=== PATIENT | female | born 1945 | race Caucasian/White ===

== ENCOUNTER 2025-02-23 02:22 | Outpatient (CLI) | payer MEDICARE, SELFPAY ==
[2025-02-23 11:44] LABS: Abs Immature Grans 0.03 10^3/uL (0.0-0.06); Absolute Basophil Count 0.04 10^3/uL (0.0-0.2); Absolute Eosinophil Count 0.13 10^3/uL (0.0-0.7); Absolute Lymphocyte Count 0.96 10^3/uL (1.2-3.4); Absolute Monocyte Count 0.79 10^3/uL (0.1-0.8); Basophils % 0.6 %; Eosinophils % 1.9 %; HCT 32.1 % (36.0-46.0); HGB 10.3 g/dL (11.2-15.7); Immature Grans % 0.4 %; MCH 28.5 pg (27.0-33.0); MCHC 32.1 % (32.0-36.0); MCV 89 fL (80-95); MPV 9.3 fL (8.0-11.0); Monocytes % 11.5 %; Neutrophils % 71.6 %; Platelet Count 345 10^3/uL (130-400); RBC 3.62 10^6/uL (3.93-5.22); RDW 17.3 % (11.7-14.6); RDW-SD 55.2 fL; WBC 6.85 10^3/uL (4.4-10.8)
[2025-02-23 12:50] LABS: ALT 23 U/L (14-59); AST 23 U/L (15-37); Albumin 2.3 g/dL (3.4-5.0); Alkaline Phosphatase 126 U/L (46-116); Anion Gap 6.4 mmol/L (3-11); BUN 8 mg/dL (7-18); Bilirubin, Total 0.2 mg/dL (0.2-1.0); CO2 30.6 mmol/L (21.0-32.0); CREATININE 0.9 mg/dL (0.55-1.02); Calcium 8.7 mg/dL (8.5-10.1); Chloride 105 mmol/L (98-107); Estimated GFR 65.44 (mL/min/1.73m2); FREE T4 1.63 ng/dL (0.76-1.46); Glucose 87 mg/dL (74-106); Magnesium 1.8 mg/dL (1.8-2.4); Potassium 3.6 mmol/L (3.5-5.1); Sodium 142 mmol/L (136-145); TSH 0.28 uIU/mL (0.36-3.74); Total Protein 6.4 g/dL (6.4-8.2)
== END 2025-02-23 02:23 | disposition home or self-care (01) ==
LOC: LBO 02:22
PROVIDERS: PCP Nurse Practitioner Family; Visit Provider Internal Medicine Medical Oncology
DX: Z79.899 Other long term (current) drug therapy (principal); C34.12 Malignant neoplasm of upper lobe, left bronchus or lung; C79.31 Secondary malignant neoplasm of brain
CPT/HCPCS: 36415; 80053; 83735; 84439; 84443; 85025

== ENCOUNTER 2025-03-15 00:45 | Outpatient (CLI) | payer MEDICARE, SELFPAY ==
[2025-03-15 10:32] LABS: Abs Immature Grans 0.05 10^3/uL (0.0-0.06); Absolute Basophil Count 0.03 10^3/uL (0.0-0.2); Absolute Eosinophil Count 0.07 10^3/uL (0.0-0.7); Absolute Lymphocyte Count 1.05 10^3/uL (1.2-3.4); Absolute Monocyte Count 0.81 10^3/uL (0.1-0.8); Absolute Neutrophil Count 3.48 10^3/uL (1.2-6.7); Basophils % 0.5 %; Eosinophils % 1.3 %; HCT 29.1 % (36.0-46.0); HGB 9.2 g/dL (11.2-15.7); Immature Grans % 0.9 %; Lymphocytes % 19.1 %; MCH 28.8 pg (27.0-33.0); MCHC 31.6 % (32.0-36.0); MCV 91 fL (80-95); MPV 9.5 fL (8.0-11.0); Monocytes % 14.8 %; Neutrophils % 63.4 %; Platelet Count 261 10^3/uL (130-400); RDW 17.2 % (11.7-14.6); RDW-SD 55.6 fL; WBC 5.49 10^3/uL (4.4-10.8)
[2025-03-15 11:13] LABS: ALT 24 U/L (14-59); AST 23 U/L (15-37); Albumin 2.5 g/dL (3.4-5.0); Alkaline Phosphatase 129 U/L (46-116); Anion Gap 8.1 mmol/L (3-11); BUN 7 mg/dL (7-18); Bilirubin, Total 0.2 mg/dL (0.2-1.0); CO2 29.9 mmol/L (21.0-32.0); CREATININE 0.7 mg/dL (0.55-1.02); Calcium 8.8 mg/dL (8.5-10.1); Chloride 103 mmol/L (98-107); Estimated GFR 88.47 (mL/min/1.73m2); FREE T4 1.62 ng/dL (0.76-1.46); Glucose 92 mg/dL (74-106); Potassium 3.9 mmol/L (3.5-5.1); Sodium 141 mmol/L (136-145); TSH 0.49 uIU/mL (0.36-3.74); Total Protein 6.5 g/dL (6.4-8.2)
== END 2025-03-15 00:46 | disposition home or self-care (01) ==
LOC: LBO 00:46
PROVIDERS: PCP Nurse Practitioner Family; Visit Provider Internal Medicine Medical Oncology
DX: Z79.899 Other long term (current) drug therapy (principal); C34.32 Malignant neoplasm of lower lobe, left bronchus or lung; C34.12 Malignant neoplasm of upper lobe, left bronchus or lung; C79.31 Secondary malignant neoplasm of brain
CPT/HCPCS: 36415; 80053; 83735; 84439; 84443; 85025

== ENCOUNTER 2025-04-05 03:33 | Outpatient (CLI) | payer MEDICARE, SELFPAY ==
[2025-04-05 10:45] LABS: Abs Immature Grans 0.01 10^3/uL (0.0-0.06); HCT 23.9 % (36.0-46.0); HGB 7.7 g/dL (11.2-15.7); Immature Grans % 0.3 %; MCH 30.1 pg (27.0-33.0); MCHC 32.2 % (32.0-36.0); MCV 93 fL (80-95); MPV 10.2 fL (8.0-11.0); Platelet Count 260 10^3/uL (130-400); RBC 2.56 10^6/uL (3.93-5.22); RDW 19.6 % (11.7-14.6); RDW-SD 64.5 fL; WBC 2.88 10^3/uL (4.4-10.8)
[2025-04-05 11:09] LABS: ALT 21 U/L (14-59); AST 22 U/L (15-37); Albumin 2.6 g/dL (3.4-5.0); Alkaline Phosphatase 110 U/L (46-116); Anion Gap 7.3 mmol/L (3-11); BUN 10 mg/dL (7-18); Bilirubin, Total 0.2 mg/dL (0.2-1.0); CO2 29.7 mmol/L (21.0-32.0); Calcium 9.0 mg/dL (8.5-10.1); Chloride 103 mmol/L (98-107); Estimated GFR 75.37 (mL/min/1.73m2); Glucose 137 mg/dL (74-106); Magnesium 1.7 mg/dL (1.8-2.4); Potassium 3.7 mmol/L (3.5-5.1); Sodium 140 mmol/L (136-145); TSH 0.04 uIU/mL (0.36-3.74); Total Protein 6.6 g/dL (6.4-8.2)
== END 2025-04-05 03:34 | disposition home or self-care (01) ==
LOC: LBO 03:33
PROVIDERS: PCP Nurse Practitioner Family; Visit Provider Internal Medicine Medical Oncology
DX: Z79.899 Other long term (current) drug therapy (principal); C79.31 Secondary malignant neoplasm of brain; C34.12 Malignant neoplasm of upper lobe, left bronchus or lung
CPT/HCPCS: 36415; 80053; 83735; 84439; 84443; 85025

== ENCOUNTER 2025-04-26 12:42 | Outpatient (RCR) | payer MEDICARE, SELFPAY ==
[2025-04-26] MEDS: Normal Saline Flush 10 ML SYR IVP (13:00)
[2025-04-26 13:10] LABS: Abs Immature Grans 0.06 10^3/uL (0.0-0.06); HCT 26.7 % (36.0-46.0); HGB 9.0 g/dL (11.2-15.7); Immature Grans % 0.9 %; MCH 31.8 pg (27.0-33.0); MCHC 33.7 % (32.0-36.0); MCV 94 fL (80-95); MPV 10.4 fL (8.0-11.0); Platelet Count 370 10^3/uL (130-400); RBC 2.83 10^6/uL (3.93-5.22); RDW 18.4 % (11.7-14.6); RDW-SD 58.2 fL; WBC 6.70 10^3/uL (4.4-10.8)
[2025-04-26 13:43] LABS: ALT 22 U/L (14-59); AST 26 U/L (15-37); Albumin 2.8 g/dL (3.4-5.0); Alkaline Phosphatase 91 U/L (46-116); Anion Gap 8.9 mmol/L (3-11); BUN 11 mg/dL (7-18); Bilirubin, Total 0.3 mg/dL (0.2-1.0); CO2 29.1 mmol/L (21.0-32.0); Calcium 8.9 mg/dL (8.5-10.1); Chloride 104 mmol/L (98-107); Estimated GFR 57.66 (mL/min/1.73m2); Glucose 75 mg/dL (74-106); Magnesium 1.9 mg/dL (1.8-2.4); Potassium 3.9 mmol/L (3.5-5.1); Sodium 142 mmol/L (136-145); TSH 0.83 uIU/mL (0.36-3.74); Total Protein 6.6 g/dL (6.4-8.2)
== END 2025-04-29 23:59 | disposition home or self-care (01) ==
LOC: INF 12:42
PROVIDERS: PCP Nurse Practitioner Family; Visit Provider Internal Medicine Medical Oncology
DX: C34.12 Malignant neoplasm of upper lobe, left bronchus or lung (principal); Z79.899 Other long term (current) drug therapy; Z45.2 Encounter for adjustment and management of vascular access device
CPT/HCPCS: 36591; 80053; 83735; 84439; 84443; 85025

== ENCOUNTER 2025-05-18 01:48 | Outpatient (RCR) | payer MEDICARE, SELFPAY ==
[2025-05-18] MEDS: Normal Saline Flush 10 ML SYR IVP (09:55)
[2025-05-18 10:11] LABS: Abs Immature Grans 0.02 10^3/uL (0.0-0.06); HCT 24.3 % (36.0-46.0); HGB 8.1 g/dL (11.2-15.7); Immature Grans % 0.4 %; MCH 33.5 pg (27.0-33.0); MCHC 33.3 % (32.0-36.0); MPV 10.8 fL (8.0-11.0); Platelet Count 276 10^3/uL (130-400); RBC 2.42 10^6/uL (3.93-5.22); RDW 21.6 % (11.7-14.6); RDW-SD 69.9 fL; WBC 5.43 10^3/uL (4.4-10.8)
[2025-05-18 10:58] LABS: MCV 100 fL (80-95)
[2025-05-18 10:59] LABS: ALT 18 U/L (14-59); AST 25 U/L (15-37); Acanthocytes 1+; Albumin 2.9 g/dL (3.4-5.0); Alkaline Phosphatase 87 U/L (46-116); Anion Gap 7.2 mmol/L (3-11); Anisocytosis 2+; BUN 8 mg/dL (7-18); Bilirubin, Total 0.4 mg/dL (0.2-1.0); CO2 29.8 mmol/L (21.0-32.0); Calcium 8.8 mg/dL (8.5-10.1); Chloride 106 mmol/L (98-107); Estimated GFR 46.33 (mL/min/1.73m2); Glucose 109 mg/dL (74-106); Magnesium 2.0 mg/dL (1.8-2.4); Ovalocytes 2+; Potassium 3.9 mmol/L (3.5-5.1); Schistocytes 1+; Sodium 143 mmol/L (136-145); TSH 0.72 uIU/mL (0.36-3.74); Total Protein 6.6 g/dL (6.4-8.2)
[2025-05-18 11:00] LABS: Tear Drop Cells 2+
== END 2025-05-30 23:59 | disposition home or self-care (01) ==
LOC: INF 01:48
PROVIDERS: PCP Nurse Practitioner Family; Visit Provider Internal Medicine Medical Oncology
DX: C34.12 Malignant neoplasm of upper lobe, left bronchus or lung (principal); Z79.899 Other long term (current) drug therapy; Z45.2 Encounter for adjustment and management of vascular access device
CPT/HCPCS: 36591; 80053; 83735; 84439; 84443; 85025

== ENCOUNTER 2025-06-29 02:33 | Outpatient (RCR) | payer MEDICARE, SELFPAY ==
[2025-06-07 09:49] LABS: Abs Immature Grans 0.03 10^3/uL (0.0-0.06); HCT 29.3 % (36.0-46.0); HGB 9.4 g/dL (11.2-15.7); Immature Grans % 0.4 %; MCH 33.8 pg (27.0-33.0); MCHC 32.1 % (32.0-36.0); MCV 105 fL (80-95); MPV 11.1 fL (8.0-11.0); Platelet Count 230 10^3/uL (130-400); RBC 2.78 10^6/uL (3.93-5.22); RDW 17.9 % (11.7-14.6); RDW-SD 68.6 fL; WBC 6.81 10^3/uL (4.4-10.8)
[2025-06-07 10:10] LABS: Macrocytosis 1+
[2025-06-07 10:32] LABS: ALT 15 U/L (14-59); AST 23 U/L (15-37); Albumin 3.0 g/dL (3.4-5.0); Alkaline Phosphatase 88 U/L (46-116); Anion Gap 6.3 mmol/L (3-11); BUN 13 mg/dL (7-18); Bilirubin, Total 0.4 mg/dL (0.2-1.0); CO2 29.7 mmol/L (21.0-32.0); Calcium 8.9 mg/dL (8.5-10.1); Chloride 105 mmol/L (98-107); Glucose 103 mg/dL (74-106); Magnesium 1.8 mg/dL (1.8-2.4); Potassium 4.3 mmol/L (3.5-5.1); Sodium 141 mmol/L (136-145); TSH 0.65 uIU/mL (0.36-3.74); Total Protein 6.9 g/dL (6.4-8.2)
[2025-06-07] MEDS: Normal Saline Flush 10 ML SYR IVP (11:06)
[2025-06-29] MEDS: Normal Saline Flush 10 ML SYR IVP (10:15)
[2025-06-29 10:31] LABS: Abs Immature Grans 0.01 10^3/uL (0.0-0.06); HCT 32.2 % (36.0-46.0); HGB 10.7 g/dL (11.2-15.7); Immature Grans % 0.2 %; MCH 34.6 pg (27.0-33.0); MCHC 33.2 % (32.0-36.0); MCV 104 fL (80-95); MPV 10.5 fL (8.0-11.0); Platelet Count 239 10^3/uL (130-400); RBC 3.09 10^6/uL (3.93-5.22); RDW 13.2 % (11.7-14.6); RDW-SD 50.4 fL; WBC 5.86 10^3/uL (4.4-10.8)
[2025-06-29 10:57] LABS: ALT 17 U/L (14-59); AST 28 U/L (15-37); Albumin 2.9 g/dL (3.4-5.0); Alkaline Phosphatase 95 U/L (46-116); Anion Gap 5.0 mmol/L (3-11); BUN 15 mg/dL (7-18); Bilirubin, Total 0.4 mg/dL (0.2-1.0); CO2 36.0 mmol/L (21.0-32.0); Calcium 9.0 mg/dL (8.5-10.1); Chloride 100 mmol/L (98-107); Glucose 123 mg/dL (74-106); Magnesium 2.0 mg/dL (1.8-2.4); Potassium 3.7 mmol/L (3.5-5.1); Sodium 141 mmol/L (136-145); TSH 0.06 uIU/mL (0.36-3.74); Total Protein 6.9 g/dL (6.4-8.2)
== END 2025-06-29 23:59 | disposition home or self-care (01) ==
LOC: INF 02:33
PROVIDERS: PCP Nurse Practitioner Family; Visit Provider Internal Medicine Medical Oncology
DX: C34.12 Malignant neoplasm of upper lobe, left bronchus or lung (principal); Z79.899 Other long term (current) drug therapy; Z45.2 Encounter for adjustment and management of vascular access device
CPT/HCPCS: 36591; 80053; 83735; 84439; 84443; 85025

== ENCOUNTER 2025-07-19 03:29 | Outpatient (RCR) | payer MEDICARE, SELFPAY ==
[2025-07-19 12:38] LABS: Abs Immature Grans 0.02 10^3/uL (0.0-0.06); HCT 33.6 % (36.0-46.0); HGB 11.0 g/dL (11.2-15.7); Immature Grans % 0.3 %; MCH 32.5 pg (27.0-33.0); MCHC 32.7 % (32.0-36.0); MCV 99 fL (80-95); MPV 10.2 fL (8.0-11.0); Platelet Count 236 10^3/uL (130-400); RBC 3.38 10^6/uL (3.93-5.22); RDW 12.3 % (11.7-14.6); RDW-SD 44.7 fL; WBC 5.75 10^3/uL (4.4-10.8)
[2025-07-19] MEDS: Normal Saline Flush 10 ML SYR IVP (12:47)
[2025-07-19 13:04] LABS: ALT 18 U/L (14-59); AST 26 U/L (15-37); Albumin 2.9 g/dL (3.4-5.0); Alkaline Phosphatase 94 U/L (46-116); Anion Gap 7.4 mmol/L (3-11); BUN 18 mg/dL (7-18); Bilirubin, Total 0.2 mg/dL (0.2-1.0); CO2 33.6 mmol/L (21.0-32.0); Calcium 9.1 mg/dL (8.5-10.1); Chloride 100 mmol/L (98-107); Estimated GFR 42.09 (mL/min/1.73m2); Glucose 66 mg/dL (74-106); Magnesium 2.3 mg/dL (1.8-2.4); Potassium 3.6 mmol/L (3.5-5.1); Sodium 141 mmol/L (136-145); TSH 3.36 uIU/mL (0.36-3.74); Total Protein 7.2 g/dL (6.4-8.2)
== END 2025-07-30 23:59 | disposition home or self-care (01) ==
LOC: INF 03:29
PROVIDERS: PCP Nurse Practitioner Family; Visit Provider Internal Medicine Medical Oncology
DX: C79.31 Secondary malignant neoplasm of brain (principal); C34.12 Malignant neoplasm of upper lobe, left bronchus or lung; Z79.899 Other long term (current) drug therapy; Z45.2 Encounter for adjustment and management of vascular access device
CPT/HCPCS: 36591; 80053; 83735; 84439; 84443; 85025

== ENCOUNTER 2025-08-09 03:10 | Outpatient (RCR) | payer MEDICARE, SELFPAY ==
[2025-08-09 10:38] LABS: Abs Immature Grans 0.02 10^3/uL (0.0-0.06); HCT 34.6 % (36.0-46.0); HGB 11.3 g/dL (11.2-15.7); Immature Grans % 0.3 %; MCH 32.2 pg (27.0-33.0); MCHC 32.7 % (32.0-36.0); MCV 99 fL (80-95); MPV 10.0 fL (8.0-11.0); Platelet Count 211 10^3/uL (130-400); RBC 3.51 10^6/uL (3.93-5.22); RDW 12.3 % (11.7-14.6); RDW-SD 44.4 fL; WBC 6.13 10^3/uL (4.4-10.8)
[2025-08-09] MEDS: Normal Saline Flush 10 ML SYR IVP (10:39)
[2025-08-09 11:06] LABS: ALT 17 U/L (14-59); AST 20 U/L (15-37); Albumin 3.0 g/dL (3.4-5.0); Alkaline Phosphatase 80 U/L (46-116); Anion Gap 6.9 mmol/L (3-11); BUN 19 mg/dL (7-18); Bilirubin, Total 0.3 mg/dL (0.2-1.0); CO2 32.1 mmol/L (21.0-32.0); Calcium 9.0 mg/dL (8.5-10.1); Chloride 102 mmol/L (98-107); Estimated GFR 32.81 (mL/min/1.73m2); Glucose 78 mg/dL (74-106); Magnesium 1.9 mg/dL (1.8-2.4); Potassium 4.0 mmol/L (3.5-5.1); Sodium 141 mmol/L (136-145); TSH 5.21 uIU/mL (0.36-3.74); Total Protein 7.1 g/dL (6.4-8.2)
== END 2025-08-29 23:59 | disposition home or self-care (01) ==
LOC: INF 03:10
PROVIDERS: PCP Nurse Practitioner Family; Visit Provider Internal Medicine Medical Oncology
DX: C34.12 Malignant neoplasm of upper lobe, left bronchus or lung (principal); Z79.899 Other long term (current) drug therapy; Z45.2 Encounter for adjustment and management of vascular access device
CPT/HCPCS: 36591; 80053; 83735; 84439; 84443; 85025

== ENCOUNTER 2025-09-20 01:09 | Outpatient (RCR) | payer MEDICARE, SELFPAY ==
[2025-08-31] MEDS: Normal Saline Flush 10 ML SYR IVP (10:13)
[2025-08-31 10:22] LABS: Abs Immature Grans 0.03 10^3/uL (0.0-0.06); HCT 36.3 % (36.0-46.0); HGB 11.9 g/dL (11.2-15.7); Immature Grans % 0.5 %; MCH 31.2 pg (27.0-33.0); MCHC 32.8 % (32.0-36.0); MCV 95 fL (80-95); MPV 10.1 fL (8.0-11.0); Platelet Count 194 10^3/uL (130-400); RBC 3.81 10^6/uL (3.93-5.22); RDW 12.9 % (11.7-14.6); RDW-SD 45.0 fL; WBC 6.65 10^3/uL (4.4-10.8)
[2025-08-31 10:56] LABS: Magnesium 2.3 mg/dL (1.6-2.6)
[2025-08-31 10:57] LABS: TSH 7.12 uIU/mL (0.55-4.78)
[2025-08-31 10:59] LABS: ALT 113 U/L (10-49); AST 114 U/L (<34); Albumin 4.1 g/dL (3.2-5.0); Alkaline Phosphatase 101 U/L (46-116); Anion Gap 6.7 mmol/L (3-11); BUN 27 mg/dL (9-23); Bilirubin, Total 0.40 mg/dL (0.2-1.2); CO2 35.3 mmol/L (20.0-31.0); Calcium 10.2 mg/dL (8.3-10.6); Chloride 100 mmol/L (98-107); Glucose 89 mg/dL (74-106); Potassium 3.9 mmol/L (3.5-5.1); Sodium 142 mmol/L (136-145); Total Protein 7.2 g/dL (5.7-8.2)
[2025-09-20 10:03] LABS: Abs Immature Grans 0.02 10^3/uL (0.0-0.06); HCT 33.7 % (36.0-46.0); HGB 11.1 g/dL (11.2-15.7); Immature Grans % 0.3 %; MCH 30.9 pg (27.0-33.0); MCHC 32.9 % (32.0-36.0); MCV 94 fL (80-95); MPV 10.2 fL (8.0-11.0); Platelet Count 224 10^3/uL (130-400); RBC 3.59 10^6/uL (3.93-5.22); RDW 13.8 % (11.7-14.6); RDW-SD 46.9 fL; WBC 6.75 10^3/uL (4.4-10.8)
[2025-09-20 10:18] LABS: Magnesium 1.9 mg/dL (1.6-2.6)
[2025-09-20 10:20] LABS: ALT 161 U/L (10-49); AST 115 U/L (<34); Albumin 4.0 g/dL (3.2-5.0); Alkaline Phosphatase 209 U/L (46-116); Anion Gap 8.7 mmol/L (3-11); BUN 25 mg/dL (9-23); Bilirubin, Total 0.5 mg/dL (0.2-1.2); CO2 31.3 mmol/L (20.0-31.0); Calcium 9.3 mg/dL (8.3-10.6); Chloride 102 mmol/L (98-107); Glucose 118 mg/dL (74-106); Potassium 3.6 mmol/L (3.5-5.1); Sodium 142 mmol/L (136-145); Total Protein 7.2 g/dL (5.7-8.2)
[2025-09-20 10:23] LABS: TSH 3.37 uIU/mL (0.55-4.78)
[2025-09-20] MEDS: Normal Saline Flush 10 ML SYR IVP (11:53)
== END 2025-09-29 23:59 | disposition home or self-care (01) ==
LOC: INF 01:09
PROVIDERS: PCP Nurse Practitioner Family; Visit Provider Internal Medicine Medical Oncology
DX: C34.12 Malignant neoplasm of upper lobe, left bronchus or lung (principal); Z79.899 Other long term (current) drug therapy; Z45.2 Encounter for adjustment and management of vascular access device
CPT/HCPCS: 36591; 80053; 83735; 84439; 84443; 85025